=== PATIENT | female | born 1990 | race Two or more races ===

== ENCOUNTER 2023-10-22 07:41 | Emergency (ER) | payer MEDICAID ==
[~2023-10-22] VITALS: Ht 157.5 cm; Wt 95.2 kg
[2023-10-22] MEDS: ONDANSETRON HCL 4 MG/2 ML VIAL IV ONE (09:27)
[2023-10-22 09:29] LABS: Hemoglobin 15.3 g/dL (12.2-16.2); Mean Corpuscular Hemoglobin 30.5 pg (28.0-32.0); Mean Corpuscular Hgb Conc. 34.8 g/dL (32.0-36.0); Mean Corpuscular Volume 87.6 fL (80.0-100.0); Red Blood Cells 5.03 10^6/uL (4.0-5.20); Red Cell Distribution Width 13.4 % (11.8-14.3); White Blood Cell 15.6 10^3/uL (4.4-10.8)
[2023-10-22 09:37] LABS: Basophils % (manual) 0 (0.0-2.0); Blast Cells 0; Eosinophils % (manual) 0 (0-7); Metamyelocytes % 0; Myelocytes % 0; Promyelocytes % 0; Reactive Lymphocytes 0
[2023-10-22 10:15] LABS: Band Neutrophils % (manual) 5; Lymphocytes % (manual) 3 (10.0-50.0); Monocytes % (manual) 4 (0-12)
[2023-10-22 10:16] LABS: Platelet Estimate Adequate; RBC Morphology Normal
[2023-10-22] MEDS: MORPHINE SULFATE INJ 2 MG/ml SYRG IV ONE (10:38)
[2023-10-22] MEDS: LIDOCAINE VISCOUS 2% 15ML UD PO ONE (11:08)
[2023-10-22] MEDS: MAALOX PLUS or MAALOX 30 ML PO ONE (11:08)
[2023-10-22] MEDS: DONNATAL 5ml ORAL Elix (BELLADONNA ALK-PHENOBARB) PO ONE (11:09)
[2023-10-22 11:41] VITALS: PULSE 74; RESP 14; O2SAT 96
[2023-10-22] MEDS ORDERED: BACDST PO (12:05)
[2023-10-22 12:16] LABS: Anion Gap 7 (5-15); Carbon Dioxide 25 mmol/L (20-30); Chloride 103 mmol/L (98-107); Potassium 3.8 mmol/L (3.5-5.1); Sodium 135 mmol/L (136-145)
[2023-10-22 12:17] LABS: Calcium 9.8 mg/dL (8.5-10.1)
[2023-10-22 12:22] LABS: BUN/Creatinine Ratio 18.8 (10.0-20.0); Blood Urea Nitrogen 18 mg/dL (9-23); Glucose 105 mg/dL (74-106)
[2023-10-22 12:47] VITALS: BP 110/78; PULSE 96; RESP 18; TEMP 98; O2SAT 94
[2023-10-22] MEDS: cefTRIAXone SOD 1,000 MG VL IM ONE (13:25)
== END 2023-10-22 13:43 | disposition home or self-care (01) ==
LOC: ER 07:41
DX: K29.70 Gastritis, unspecified, without bleeding (principal); N39.0 Urinary tract infection, site not specified; F12.10 Cannabis abuse, uncomplicated; F10.90 Alcohol use, unspecified, uncomplicated; Y90.9 Presence of alcohol in blood, level not specified
CPT/HCPCS: 36415; 80048; 85007; 85027; 96372; 96374; 99285; J0696; J2405